=== PATIENT | female | born 1990 | race Hispanic/Latino ===

== ENCOUNTER 2017-10-11 16:16 | Inpatient (IN) | payer MEDICAID ==
[~2017-10-11] VITALS: Ht 154.9 cm; Wt 90.3 kg
[~2017-10-11 16:16] MED LIST: FERR325T22 PO; IBUP-2353 PO; PREN1TAB80 PO
[2017-10-11] MEDS ORDERED: LACTATED RINGERS 1000ML 1,000 ML IV PRN (16:20)
[2017-10-11] MEDS ORDERED: OXYTOCIN-LR 20 UNITS/1000 ML 1,000 ML IV SCH (16:30)
[2017-10-11] MEDS ORDERED: DINOPROSTONE 10 MG VAGINAL SUPP VG SCH (16:30)
[2017-10-11 17:15] LABS: HEMATOCRIT 41.3 % (36-48); MEAN CORPUSCULAR HEMOGLOBIN 31.5 pg (27.0-33.0); MEAN CORPUSCULAR HGB CONC 34.4 g/dL (32.0-36.0); MEAN CORPUSCULAR VOLUME 91.3 fL (79-99); PLATELET COUNT (AUTO) 258 K/uL (130-400); RED BLOOD CELL COUNT(AUTO) 4.52 MIL/uL (4.00-5.50); WHITE BLOOD COUNT (AUTO) 9.7 K/uL (4.8-10.8)
[2017-10-11 17:17] LABS: APPEARANCE,URINE Clear (CLEAR); BILIRUBIN,URINE Negative (NEGATIVE); COLOR,URINE Yellow (YELLOW); GLUCOSE, URINE (UA) Negative (NEGATIVE); KETONES,URINE 15 mg/dL (NEGATIVE); LEUKOCYTE ESTERASE ,URINE Moderate (NEGATIVE); NITRATE,URINE Negative (NEGATIVE); OCCULT BLOOD,URINE Negative (NEGATIVE); PROTEIN,URINE Negative (NEGATIVE)
[2017-10-11 17:30] LABS: BACTERIA,URINE Rare /HPF (None Seen); RBC,URINE None Seen /HPF (0-1); WBC,URINE 0-1 /HPF (0-1)
[2017-10-11] MEDS ORDERED: MEPERIDINE-PF 50 MG/ML SYG IVP PRN (22:00)
[2017-10-11] MEDS ORDERED: PROMETHAZINE HCL 25 MG/ML 1ML AMPULE IM PRN (22:00)
[2017-10-11] MEDS ORDERED: LACTATED RINGERS 1000ML 1,000 ML IV ONE (23:34)
[2017-10-11] MEDS ORDERED: OXYTOCIN 10 USP UNITS/ML ONE (23:34)
[2017-10-12] VITALS (8 sets, daily range): BP systolic 98–124; BP diastolic 51–79
[2017-10-12] MEDS ORDERED: LIDOCAINE HCL 1% 20 ML VIAL ONE (00:14)
[2017-10-12] MEDS ORDERED: ACETAMINOPHEN-CODEINE 300/30MG TAB PO PRN (01:30)
[2017-10-12] MEDS ORDERED: MEASLES/MUMPS/RUBELLA VACCINE, LIVE 0.5 ML/VIAL SQ PRN (01:30)
[2017-10-12] MEDS ORDERED: LANOLIN 30GM OINTMENT TP PRN (01:30)
[2017-10-12] MEDS ORDERED: WITCH HAZEL 1 PAD TP PRN (01:30)
[2017-10-12] MEDS ORDERED: BENZOCAINE/LANOLIN/ALOE VERA 60 ML AEROSOL TP PRN (01:30)
[2017-10-12] MEDS ORDERED: ACETAMINOPHEN 325 MG TAB PO PRN (01:30)
[2017-10-12] MEDS ORDERED: OXYTOCIN-LR 20 UNITS/1000 ML 1,000 ML IV SCH (01:30)
[2017-10-12] MEDS ORDERED: OXYTOCIN 10 USP UNITS/ML ONE (02:27)
[2017-10-12] MEDS: IBUPROFEN 800 MG TAB PO PRN ×2 (05:50→15:59)
[2017-10-12 07:00] LABS: MEAN CORPUSCULAR HEMOGLOBIN 31.5 pg (27.0-33.0); MEAN CORPUSCULAR HGB CONC 34.9 g/dL (32.0-36.0); MEAN CORPUSCULAR VOLUME 90.3 fL (79-99); PLATELET COUNT (AUTO) 228 K/uL (130-400); RED CELL DISTRIBUTION WIDTH 13.6 % (11.0-15.5); WHITE BLOOD COUNT (AUTO) 14.4 K/uL (4.8-10.8)
[2017-10-12] MEDS ORDERED: OXYTOCIN 10 USP UNITS/ML 20 UNIT in LACTATED RINGERS 1000ML 1,000 ML IV SCH (12:00)
[2017-10-12] MEDS: FLU VACC QS2017-18 36MOS UP/PF 60 MCG/0.5 ML ML IM SCH ×2 (16:00→20:17)
[2017-10-13 02:56] VITALS: BP 108/61
[2017-10-13] MEDS: IBUPROFEN 800 MG TAB PO PRN ×2 (03:18→11:34)
[2017-10-13] MEDS: FLU VACC QS2017-18 36MOS UP/PF 60 MCG/0.5 ML ML IM SCH (03:27)
[2017-10-13 06:19] LABS: HEPATITIS Bs ANTIGEN SCREEN P Negative (Negative)
[2017-10-13 07:31] VITALS: BP 115/71
[2017-10-13] MEDS ORDERED: DOCUSATE SODIUM 100 MG CAP PO ONE (08:40)
[2017-10-13 11:24] VITALS: BP 129/83
== END 2017-10-13 14:25 | disposition home or self-care (01) | DRG 560 ==
LOC: LDH 16:16 → WSH 10-12 02:29
PROVIDERS: ADMIT Obstetrics & Gynecology; ATTEND Obstetrics & Gynecology
PROC: 10907ZC Drainage of Amniotic Fluid, Therapeutic from Products of Conception, Via Natural or Artificial Opening (ICD-10-PCS; principal; 2017-10-12)
PROC: 0HQ9XZZ Repair Perineum Skin, External Approach (ICD-10-PCS; 2017-10-12)
PROC: 3E0P7VZ Introduction of Hormone into Female Reproductive, Via Natural or Artificial Opening (ICD-10-PCS; 2017-10-12)
PROC: 3E0234Z Introduction of Serum, Toxoid and Vaccine into Muscle, Percutaneous Approach (ICD-10-PCS; 2017-10-13)
DX: O70.0 First degree perineal laceration during delivery (principal); Z37.0 Single live birth; Z23 Encounter for immunization; Z3A.40 40 weeks gestation of pregnancy
CPT/HCPCS: 36415; 81001; 85027; 86592; 86850; 86900; 86901; 87340; A4351; J2590; J7120; Q2038